=== PATIENT | female | born 1965 | race Caucasian/White ===

== ENCOUNTER 2022-10-24 17:49 | Outpatient (REF) | payer BC, SELFPAY ==
[2022-10-24 17:05] LABS: ALT 21 U/L (14-59); AST 26 U/L (15-37); Albumin 3.8 g/dL (3.4-5.0); Alkaline Phosphatase 65 U/L (46-116); BUN 20 mg/dL (7-18); Bilirubin, Total 0.3 mg/dL (0.2-1.0); CREATININE 0.5 mg/dL (0.55-1.02); Calcium 8.9 mg/dL (8.5-10.1); Calculated LDL 204 mg/dL (<100); Chloride 103 mmol/L (98-107); Cholesterol 324 mg/dL (<200); Estimated GFR 107.98 (mL/min/1.73m2); Glucose 95 mg/dL (74-106); HDL Cholesterol 103 mg/dL (40-60); Sodium 140 mmol/L (136-145); TSH 0.75 uIU/mL (0.36-3.74); Total Protein 7.6 g/dL (6.4-8.2); Triglyceride 89 mg/dL (<150)
[2022-10-24 17:22] LABS: Anion Gap 10.1 mmol/L (3-11); CO2 26.9 mmol/L (21.0-32.0); FREE T4 0.75 ng/dL (0.76-1.46)
== END 2022-10-24 17:50 | disposition home or self-care (01) ==
LOC: NCHCN 17:49
PROVIDERS: Visit Provider Nurse Practitioner Family
DX: E78.00 Pure hypercholesterolemia, unspecified (principal); L94.0 Localized scleroderma [morphea]; F43.22 Adjustment disorder with anxiety
CPT/HCPCS: 80053; 80061; 84439; 84443

== ENCOUNTER 2022-11-29 02:30 | Outpatient (CLI) | payer BC, SELFPAY ==
--- NOTE | 2022-11-29 | DI.MAMMO_ITS ---
Exam(s) MAMMO SCREENING EXAM: MAMMO SCREENING CLINICAL HISTORY: SCREENING FOR BREAST CANCER Z12.39 Z12.31 TECHNIQUE: Bilateral full field digital CC and MLO mammographic images were obtained with 3D tomosyn thesis and utilizing computer aided detection (CAD). COMPARISON: No prior comparison exams are available. The patient states prior exams in [place] which cannot be retrieved at this time. FINDINGS: Masses/Architectural Distortion: There is question of a small area of asymmetric tissue in the upper central right breast. Spot compression views are requested. Ultrasound may also be indicated at meli t time. No abnormalities seen in the left breast. Microcalcifications: No suspicious pleomorphic-type are seen. Skin Thickening/Nipple Retraction: None. IMPRESSION: BI-RADS Category 0 - Assessment Incomplete: Need additional imaging evaluation Breast Density - Category B - Scattered areas of fibroglandular density A negative radiographic report should not delay biopsy if a dominant or clinically suspicious mass is present. Up to ten percent of cancers are not identified on mammography. A negative report may reinforce clinical impression. Adenosis and dense breasts may obscure an underlying neoplasm. False positive reports average 6 to 10%. Patient will receive a letter notifying them of these results.
== END 2022-11-29 02:50 ==
LOC: DI 02:30
PROVIDERS: Visit Provider Nurse Practitioner Family
DX: Z12.31 Encounter for screening mammogram for malignant neoplasm of breast (principal); R92.8 Other abnormal and inconclusive findings on diagnostic imaging of breast
CPT/HCPCS: 77063; 77067

== ENCOUNTER 2022-12-06 11:03 | Outpatient (REF) | payer BC, SELFPAY ==
--- NOTE | 2022-12-06 10:30 | PAPFT_PTH ---
PATIENT: Alondra Carolina [facility]: [id number] AGE/SX: 57/F ROOM: RE12/06/[address]: Ally Olivia : 1965 BED: DIS: 12/06/2022 SPEC #: [id number] RECD: 12/06/22 17:54 STATUS: YUAN REQ #: [id number] ZENON: 12/06/22 10:[address]: Ally Olivia DEPT: [facility] Cytology RECD BY: Lidia Flores ENTERED: 12/06/22 17:54 SP TYPE: PAPFT LARRY DR: Unknown,Unknown Tissues: 1 - CX/ENDOCX FOR PAP SMEARS Procedures: PAP THIN PREP/UVM Screening HPV DNA PROBE Comments: [id number]
== END 2022-12-06 11:04 | disposition home or self-care (01) ==
LOC: NCHCN 11:03
PROVIDERS: Visit Provider Nurse Practitioner Family
DX: N89.8 Other specified noninflammatory disorders of vagina (principal); Z12.4 Encounter for screening for malignant neoplasm of cervix; Z11.51 Encounter for screening for human papillomavirus (HPV); Z01.419 Encounter for gynecological examination (general) (routine) without abnormal findings
CPT/HCPCS: 88142; 87480; 87510; 87624; 87660

== ENCOUNTER 2022-12-23 00:46 | Outpatient (CLI) | payer BC, SELFPAY ==
--- NOTE | 2022-12-23 | DI.US_ITS ---
Exam(s) MG MAMMO SCREEN CALL BACK UNI US BREAST RT COMPLETE EXAM: MG MAMMO SCREEN CALL BACK UNI CLINICAL HISTORY: F/U MAMMO, ?ASYMMETRIC BREAST TISSUE. TECHNIQUE: Craniocaudal and mediolateral oblique spot compression digital Mammography views of the r ight breast followed by Tomosynthesis and right breast ultrasound. COMPARISON: MG MG MAMMO SCREENING from 11/29/2022 US US BREAST RT COMPLETE from 12/23/2022 . The patient states prior exams in [place] were again wh ich are not available for comparison at this time. FINDINGS: Mammography/Tomosynthesis: Masses/Architectural Distortion: Decreased prominence of area of asymmetric tissue in the upper centr al left breast. Microcalcifictions: No suspicious pleomorphic-type are seen. Skin Thickening/Nipple Retraction: None. Right breast US: Echotexture: Normal appearance of the glandular tissue. Shadowing: No suspicious foci. Cyst: None. Solid lesions: None seen. Ductal dilation: None. IMPRESSION: 1. No evidence of malignancy is noted. 2. Six-month follow-up right mammogram recommended. 3. The findings were discussed with the patient on the date of the examination. BI-RADS Category 3 - 6 month - Probably Benign Finding: Recommend follow-up mammography in 6 months Breast Density - Category B - Scattered areas of fibroglandular density A mammogram that demonstrates density of C or D indicates the patient's breast tissue is dense. Dense breast tissue is very common and is not abnormal, but dense breast tissue can make it harder to find cancer on a mammogram. Also, dense breast tissue may increase their breast cancer risk. This informa tion about the result of the mammogram report was provided to the patient to raise their awareness. U se this report when you speak with the patient about their risks for breast cancer, which includes th eir family history. At that time, you may recommend for more screening tests (Ultrasound or MRI) as t hey might be useful based on their risk. A negative radiographic report should not delay biopsy if a dominant or clinically suspicious mass is present. Up to ten percent of cancers are not identified on mammography. A negative report may reinforce clinical impression. Adenosis and dense breasts may obscure an underlying neoplasm. False positive reports average 6 to 10%. Patient will receive a letter notifying them of these results.
== END 2022-12-23 01:06 ==
PROVIDERS: Visit Provider Nurse Practitioner Family
DX: Z12.31 Encounter for screening mammogram for malignant neoplasm of breast (principal); R92.8 Other abnormal and inconclusive findings on diagnostic imaging of breast
CPT/HCPCS: 76642; 77063; 77067

== ENCOUNTER 2023-02-06 11:24 | Outpatient (REF) | payer BC, SELFPAY ==
[2023-02-06 17:24] LABS: ALT 21 U/L (14-59); AST 18 U/L (15-37); Creatine Kinase 78 U/L (26-192)
[2023-02-06 17:39] LABS: HDL Cholesterol 121 mg/dL (40-60); LDL CHOLESTEROL 151 mg/dL (<100)
== END 2023-02-06 11:25 | disposition home or self-care (01) ==
LOC: NCHCN 11:24
PROVIDERS: Visit Provider Nurse Practitioner Family
DX: E78.00 Pure hypercholesterolemia, unspecified (principal)
CPT/HCPCS: 82550; 83721; 83718; 84450; 84460

== ENCOUNTER 2023-06-05 12:28 | Outpatient (REF) | payer BC, SELFPAY ==
[2023-06-05 19:00] LABS: Calculated LDL 185 mg/dL (<100); Cholesterol 297 mg/dL (<200); HDL Cholesterol 104 mg/dL (40-60); Triglyceride 41 mg/dL (<150)
== END 2023-06-05 12:29 | disposition home or self-care (01) ==
LOC: NCHCN 12:28
PROVIDERS: Visit Provider Nurse Practitioner Family
DX: E78.00 Pure hypercholesterolemia, unspecified (principal); F43.22 Adjustment disorder with anxiety
CPT/HCPCS: 80061

== ENCOUNTER 2023-08-31 10:53 | Outpatient (REF) | payer BC, SELFPAY ==
[2023-08-31 17:12] LABS: ALT 23 U/L (14-59); AST 18 U/L (15-37); HDL Cholesterol 112 mg/dL (40-60); LDL CHOLESTEROL 118 mg/dL (<100)
[2023-08-31 17:26] LABS: Creatine Kinase 105 U/L (26-192)
== END 2023-08-31 10:54 | disposition home or self-care (01) ==
LOC: NCHCN 10:53
PROVIDERS: Visit Provider Nurse Practitioner Family
DX: E78.00 Pure hypercholesterolemia, unspecified (principal)
CPT/HCPCS: 82550; 83721; 83718; 84450; 84460

== ENCOUNTER 2023-12-15 02:56 | Outpatient (CLI) | payer BC, SELFPAY ==
[2023-12-15 10:55] LABS: ALT 24 U/L (14-59); AST 18 U/L (15-37); HDL Cholesterol 128 mg/dL (40-60); LDL CHOLESTEROL 130 mg/dL (<100)
[2023-12-15 11:20] LABS: Creatine Kinase 147 U/L (26-192)
== END 2023-12-15 02:57 | disposition home or self-care (01) ==
LOC: LBO 02:56
PROVIDERS: Visit Provider Nurse Practitioner Family
DX: E78.00 Pure hypercholesterolemia, unspecified (principal)
CPT/HCPCS: 36415; 82550; 83721; 83718; 84450; 84460

== ENCOUNTER 2024-02-23 02:05 | Outpatient (CLI) | payer BC, SELFPAY ==
[2024-02-23 10:48] LABS: HDL Cholesterol 145 mg/dL (40-60); LDL CHOLESTEROL 120 mg/dL (<100); TSH 1.38 uIU/Ml (0.36-3.74)
[2024-02-23 11:10] LABS: FREE T4 0.78 ng/dL (0.76-1.46)
== END 2024-02-23 02:06 | disposition home or self-care (01) ==
LOC: LBO 02:05
PROVIDERS: PCP Nurse Practitioner Family; Visit Provider Nurse Practitioner Family
DX: Z00.00 Encounter for general adult medical examination without abnormal findings (principal); E78.00 Pure hypercholesterolemia, unspecified
CPT/HCPCS: 36415; 83721; 83718; 84439; 84443

== ENCOUNTER 2025-01-16 15:08 | Outpatient (REF) | payer BC, SELFPAY ==
[2025-01-16 15:46] LABS: Hemoglobin A1C 5.5 % (<5.7)
[2025-01-16 17:08] LABS: AST 19 U/L (15-37); Calculated LDL 138 mg/dL (<100); Cholesterol 274 mg/dL (<200); HDL Cholesterol 125 mg/dL (>or=50); Triglyceride 59 mg/dL (<150)
[2025-01-16 17:19] LABS: Creatine Kinase 103 U/L (26-192)
[2025-01-16 22:09] LABS: T4, Free 0.9 ng/dL (0.8-2.2)
== END 2025-01-16 15:09 | disposition home or self-care (01) ==
LOC: NCHCN 15:08
PROVIDERS: Visit Provider Family Medicine
DX: Z00.00 Encounter for general adult medical examination without abnormal findings (principal); E04.1 Nontoxic single thyroid nodule; E78.5 Hyperlipidemia, unspecified
CPT/HCPCS: 80061; 82550; 83036; 84439; 84450

== ENCOUNTER 2025-02-19 01:48 | Outpatient (CLI) | payer BC, SELFPAY ==
--- NOTE | 2025-02-19 | DI.MAMMO_ITS ---
Exam(s) MAMMO SCREENING EXAM: MAMMO SCREENING CLINICAL HISTORY: SCREENING, Z12.31. TECHNIQUE: Bilateral full field digital CC and MLO mammographic images were obtained with 3D tomosyn thesis and utilizing computer aided detection (CAD). COMPARISON: Prior mammograms back to 2018 were reviewed. FINDINGS: There has been no significant change in the appearance and distribution of the fibroglandular tissue. Are no CAD designations. There are no new spiculated masses nor malignant appearing microcalcification groups. Asymmetric density in the central right breast seen on the CC view is unchanged from 2018. There is no significant architectural distortion nor skin thickening-retraction. IMPRESSION: No radiographic evidence of malignancy. BI-RADS Category 1 - Negative Breast Density - Category B - Scattered areas of fibroglandular density Breast density Category C or D implies that the patient has dense breast tissue. Dense breast tissue can make it harder to find cancer on a mammogram. Dense breast tissue is also associated with an incr eased risk of breast cancer. This information about the result of the mammogram report was provided to the patient to raise their awareness. Use this report when you speak with the patient about their risks for breast cancer, which includes their family history. At that time, you may recommend additional screening tests (Ultrasoun d or MRI) as these tests may add significant information. A negative radiographic report should not delay biopsy if a dominant or clinically suspicious mass is present. Up to ten percent of cancers are not identified on mammography. A negative report may reinforce clinical impression. Adenosis and dense breasts may obscure an underlying neoplasm. False positive reports average 6 to 10%. Patient will receive a letter notifying them of these results.
--- NOTE | 2025-02-19 | DI.US_ITS ---
Exam(s) US THYROID EXAM: US THYROID CLINICAL HISTORY: THYROID NODULE, E04.1. TECHNIQUE: Ultrasound thyroid performed using standard protocol. COMPARISON: US US THYROID AND NECK from 01/01/2021 US US THYROID from 12/15/2023 FINDINGS: When compared to the prior ultrasound of December 2023 there is again noted a solitary small nodule i n each lobe. These remain similar in size to prior ultrasound of slightly over 1 year ago. There ar e no new nodules in either lobe nor within the isthmus. Specifics of today's study are as follows: RIGHT THYROID LOBE: Measures 1.3 cm AP x 1.5 cm wide x 4.6 cm craniocaudal The nodule is again noted in the inferior aspect of the right lobe Nodule size: Measures 0.4 x 0.3 x 0.3 cm Composition: Solid-2 points Echogenicity: Hypoechoic-2 points Shape: Wider than taller-0 points Margin: Smooth- 0 points Echogenic Foci: Now contains a new single centrally located punctate echogenic focus-3 points Total Points for this nodule: 7 ACR Ti-Rads Category: TR5 This nodule has now progressed to TR 5 level but can be followed given that it measures less than 1 c m. ISTHMUS: Normal thickness. There are no nodules in the isthmus. LEFT THYROID LOBE: Measures 1.1 cm AP x 1.6 wide x 5.1 cm craniocaudal The previously described small nodules again noted in the inferior aspect of the left lobe. Size: This nodule measures 0.4 x 0.2 x 0.3 cm Composition: Solid-2 points Echogenicity: Hypoechoic-2 points Shape: Wider than taller in the transverse plane-0 points Margin: Smooth-0 points Echogenic Foci: This left lobe nodule also now contains a single tiny echogenic focus-3 points Total points for this nodule: 7 ACR Ti-Rads Category: 5 This nodule has now progressed to TR 5 level but can be followed given that it measures less than 1 c m. LYMPH NODES: There is no significant adenopathy. IMPRESSION: 1. Compared to the most recent ultrasound examination of December 2023 there is again noted a single small sub cm size solid nodule in each thyroid lobe, unchanged in size. 2. However, both nodules now exhibit a single punctate echogenic internal focus and are therefore now TR 5 level nodules. However, these can be followed conservatively given that they both measure less than 1 cm. Recommend repeat ultrasound in 1 year, earlier if clinically indicated. 3. There is no significant lymphadenopathy. DATA REPOSITORY:
== END 2025-02-19 02:08 ==
LOC: DI 01:48
PROVIDERS: PCP Family Medicine; Visit Provider Family Medicine
DX: Z12.31 Encounter for screening mammogram for malignant neoplasm of breast (principal); E04.1 Nontoxic single thyroid nodule; R92.323 Mammographic fibroglandular density, bilateral breasts
CPT/HCPCS: 77063; 77067; 76536

== ENCOUNTER 2025-07-22 15:00 | Outpatient (REF) | payer BC, SELFPAY ==
[2025-07-22 15:45] LABS: AST 19 U/L (15-37); Calculated LDL 183 mg/dL (<100); Cholesterol 291 mg/dL (<200); HDL Cholesterol 96 mg/dL (>or=50); TSH 0.93 uIU/mL (0.36-3.74); Triglyceride 60 mg/dL (<150)
== END 2025-07-22 15:01 | disposition home or self-care (01) ==
LOC: NCHCN 15:00
PROVIDERS: PCP Family Medicine; Visit Provider Family Medicine
DX: B35.1 Tinea unguium (principal); E78.00 Pure hypercholesterolemia, unspecified
CPT/HCPCS: 80061; 84443; 84450